=== PATIENT | male | born 1960 | race Caucasian/White ===

== ENCOUNTER 2017-03-17 12:30 | Inpatient (IN) | payer OTHER ==
[2017-03-17 14:09] VITALS: BMI 38.7
[2017-03-24] MEDS ORDERED: Tranexamic Acid 1,000 MG/100 ML BAG ONE ×2 (05:52→08:57)
[2017-03-24] MEDS ORDERED: Bupivacaine PF 0.5% 30 ML VIAL ONE (06:18)
[2017-03-24] MEDS ORDERED: Midazolam HCl 2 mg/2 ml Vial ONE (06:25)
[2017-03-24] MEDS ORDERED: Fentanyl 100 MCG/2 ML VIAL ONE ×4 (06:25→09:19)
[2017-03-24] MEDS ORDERED: Ropivacaine 0.2% HCl/PF 20 ML ONE (06:26)
[2017-03-24] MEDS ORDERED: CEFAZOLIN/Water 2 GM/20 ML SYRINGE ONE (06:51)
[2017-03-24] MEDS ORDERED: Promethazine HCl 25 MG/ML VIAL IM PRN ×2 (06:59→07:55)
[2017-03-24] MEDS ORDERED: HYDROcodone/Acetaminophen 10/325 mg Tablet PO PRN ×3 (06:59→07:55)
[2017-03-24] MEDS ORDERED: Ondansetron HCl/PF 4 MG/2 ML Vial IVP PRN ×2 (06:59→07:55)
[2017-03-24] MEDS ORDERED: diphenhydrAMINE 25 MG CAP PO PRN (06:59)
[2017-03-24] MEDS ORDERED: Zolpidem Tartrate 5 MG TAB PO PRN ×2 (06:59→07:55)
[2017-03-24] MEDS ORDERED: Acetaminophen 325 MG TAB PO PRN (06:59)
[2017-03-24] MEDS ORDERED: traMADol HCl 50 MG TAB PO PRN ×2 (06:59→07:55)
[2017-03-24] MEDS ORDERED: Fentanyl 100 MCG/2 ML VIAL SLOW IVP PRN ×2 (06:59)
[2017-03-24] MEDS ORDERED: Tranexamic Acid 1,000 MG in Sodium Chloride 0.9% 100 ML IVPB SCH (07:00)
[2017-03-24] MEDS ORDERED: Dextrose 5% in Water 1,000 ML IV PRN (07:02)
[2017-03-24] MEDS ORDERED: Dextrose 50% Abboject 50 ML SYRINGE SLOW IVP PRN (07:02)
[2017-03-24] MEDS ORDERED: Ondansetron HCl/PF 4 MG/2 ML Vial ONE (07:12)
[2017-03-24] MEDS ORDERED: ePHEDrine/0.9% NaCl/PF SYRINGE 50 mg/10 ml ONE (07:12)
[2017-03-24] MEDS ORDERED: Propofol 200 MG/20 ML VIAL ONE (07:12)
[2017-03-24] MEDS ORDERED: Ropivacaine HCl/PF 250 ML in Premix Bag 1 BAG NERVE BLCK SCH (07:55)
[2017-03-24] MEDS ORDERED: Losartan Potassium 25 MG TAB PO SCH (09:00)
--- NOTE | 2017-03-24 09:26 | RAD ---
TWO VIEWS LEFT KNEE: History: Left knee arthroplasty. Comparison: None. FINDINGS: Post-operative changes. Left knee arthroplasty identified. No fracture or dislocation. IMPRESSION: Unremarkable two views left knee. POS: [facility]
[2017-03-24] MEDS ORDERED: Insulin Regular 300 UNITS/3 ML VIAL SC PRN ×2 (10:49)
--- NOTE | 2017-03-24 10:59 | OP ---
DATE OF PROCEDURE: 03/24/2017 PREOPERATIVE DIAGNOSIS: End-stage tricompartmental osteoarthritis, left knee. POSTOPERATIVE DIAGNOSIS: End-stage tricompartmental osteoarthritis, left knee. OPERATIVE PROCEDURE: Cemented cruciate-sparing computer-assisted navigated left total knee arthropl raúl. SURGEON: Rupert Mercer M.D. ELECTRICIAN ELEVATOR MAINTENANCE: Jean-Claude Sánchez PA-C. ANESTHESIA: General via LMA augmented with indwelling adductor canal block and single shot sciatic block. COMPONENTS USED: [employer] Triathlon cemented cruciate-sparing primary femoral component size 6 with a cemented cruciate-sparing primary Triathlon tibial size 5 tibial baseplate, and a 9 mm polyethylene fixed bearing insert, and A38 patellar button. TOURNIQUET TIME: 67 minutes at 300 mmHg. ESTIMATED BLOOD LOSS: Less than 100. 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 DRAINS: None. SPECIMENS: None. COMPLICATIONS: None. COUNTS: Correct. INDICATIONS FOR SURGERY: Larry is a 56-year-old white male who has had progressive left knee pain, a mplified with standing and walking for the last 5-7 years. He has failed conservative management an d elected to proceed with total knee arthroplasty as definitive treatment of pain. PROCEDURE IN DETAIL: After informed consent was obtained in the preoperative holding area. The pat ient was taken to the operative suite where general anesthesia was induced. Once adequate level of general anesthesia was obtained, the patient was positioned and a well-padded tourniquet was placed around the left proximal thigh. The left lower extremity was then prepped and draped in the usual s terile fashion. Prior to exsanguination, a time out was called and all members of the surgical team agreed upon site, surgeon, and patient. The extremity was then exsanguinated and the tourniquet wa s raised. A midline longitudinal incision was then made directly over the patella extending two fin gerbreadths above the superior pole of the patella and two fingerbreadths inferior to the inferior p atellar pole of the patella. Deeper subcutaneous layers were dissected sharply and local bleeding w as controlled with Bovie electrocautery. A quad tendon longitudinal split was then made sharply and a median parapatellar arthrotomy was carried out both sharp and with Bovie electrocautery, carried down to one fingerbreadth medial to the tibial tubercle. The knee was then placed into flexion and the patella was everted nicely, and a copious fat pad ectomy was performed allowing for greater expo sure of the tibia. The computer-assisted distal femoral fiducial was then placed and pinned firmly, and the distal femoral cutting guide was pinned firmly into place. The oscillating saw was then us ed to remove the appropriate amount of bone. The 4-in-1 cutting block was then placed on the distal femur and the oscillating saw was used to remove the appropriate amount of bone off of the anterior , posterior, and chamfer cuts. After completion of bone cuts, the anterior cruciate ligament was re sected sharply and the posterior cruciate ligament retractor was placed and the tibia was subluxed f or better exposure. Partial meniscectomies were carried out, and the tibial computer-assisted fiduc ial was pinned, and the cutting guide was placed. Oscillating saw was then used to remove the bone with Hohmann retractors used to take care and protect the collateral ligaments. After the tibial re section was performed, a laminar power lineman technician was placed in between the freshened bone cuts. The knee p laced at 90 degrees and further bilateral meniscectomies were carried out, and the curved osteotome and curettage was used to remove any excess bone spurs in the posterior compartment. The trial femo ral component, tibial baseplate were placed with the appropriate polyethylene trial insert with an a ppropriate polyethylene spacer and patellar button. The knee was taken through full range of motion with flexion and extension from 0-90 degrees and patellar broach squarely in the trochlea without any squinting or subluxation noted. The knee was also stable to varus and valgus stressing at 0, 15 , 45, and 90 degrees of flexion. The drawer was negative. All trial components were then removed an d the keel punch was used to provide the appropriate defect in the tibia with a mallet. The freshen ed bone cuts were copiously irrigated with pulsatile lavage of about 1-1/2 liters to remove all exce ss debris. The freshened bone cuts were then dried and with suction and lap sponge. The knee was p laced in flexion and retractors were placed to provide access to all bone cuts. Tobramycin impregna raghav methyl methacrylate cement was then placed on the freshened bone cuts and implants which were ma lleted firmly into place. Curettage and Cucumber elevators were used to remove any excess bone cement. The knee was placed into full extension and the patellar button was placed under compression, and the cement was allowed to cure. Once completed, the components were again taken through full range of motion and copious irrigation of the knee was carried out with another liter of normal saline. A ll components were inspected fully with full range of motion and varus and valgus stressing. There was no laxity noted and full extension was observed clinically. Primary closure was accomplished wi th #2 interrupted Vicryl stitch of the arthrotomy defect. This was oversewn with a #2 running Quill barbed stitch. The subcutaneous layer was then closed with a running 0 barbed Monocryl stitch and skin closure accomplished with a running subcuticular 3-0 Monocryl barbed Quill stitch and augmented with cement on the skin. Tourniquet was lowered. Good spontaneous return of distal pulses was not ed clinically and a sterile dressing was applied to the incision. The procedure was terminated with out any complications. The patient was awakened in the operative suite and taken to the recovery ro om in stable condition.
[2017-03-24] MEDS ORDERED: Doxycycline 100 MG CAP PO SCH ×2 (11:00→21:00)
[2017-03-24] MEDS: Sodium Chloride 0.9% 1,000 ML IV SCH ×2 (11:00→19:01)
[2017-03-24] MEDS: CEFAZOLIN/Water 2 GM/20 ML SYRINGE SLOW IVP SCH ×2 (11:00→15:08)
[2017-03-24] MEDS: Aspirin 325 MG TAB PO SCH ×2 (11:01→20:52)
[2017-03-24] MEDS: metFORMIN XR 500 MG TAB PO SCH ×2 (11:01→18:10)
[2017-03-24] MEDS: Ketorolac Tromethamine 30 MG/ML VIAL IVP SCH ×2 (11:10→18:12)
[2017-03-24] MEDS: Carvedilol 3.125 MG TAB PO SCH ×2 (11:23→20:50)
[2017-03-24] MEDS: HYDROcodone/Acetaminophen 10/325 mg Tablet PO PRN ×2 (13:41→20:48)
[2017-03-24] MEDS ORDERED: Ropivacaine 0.5% HCl/PF (150 MG/30 ML VIAL) ONE (14:46)
[2017-03-24] MEDS ORDERED: Polyethylene Glycol 3350 17 GM Packet PO PRN (16:11)
[2017-03-24] MEDS ORDERED: hydrALAZINE 20 MG/ML VIAL SLOW IVP PRN (16:12)
[2017-03-24] MEDS ORDERED: Mag-Al 1200 mg/1200 mg/30 ML UDCUP PO PRN (16:12)
[2017-03-24] MEDS ORDERED: Labetalol HCl 100 MG/20 ML VIAL SLOW IVP PRN (16:12)
[2017-03-24] MEDS ORDERED: Calcium Carbonate 500 MG ChewTAB PO PRN (16:12)
--- NOTE | 2017-03-24 16:14 | PDOC.PN ---
- Subjective Encounter Start Date: 03/24/17 Encounter Start Time: 16:00 Patient seen and examined. Chart reviewed. Consult for medical mngt. Pain controlled. Denies any CP/SOB. - Objective MAR Reviewed: Yes Vital Signs & Weight: Vital Signs (12 hours) Temp Pulse Resp BP Pulse Ox 03/24/17 10:53 98.4 F 75 18 03/24/17 10:52 75 18 151/83 H 95 Weight Weight 270 lb Additional Labs: Laboratory Tests 03/17/17 13:45 Creatinine 0.72 EKG Reviewed by me: Yes (SR) Phys Exam - Physical Examination Constitutional: NAD Respiratory: no wheezing, no rhonchi Cardiovascular: RRR, no rub Gastrointestinal: soft, non-tender, positive bowel sounds Musculoskeletal: no edema Neurological: non-focal, moves all 4 limbs Psychiatric: A&O x 3 Dx/Plan (1) HTN (hypertension) Code(s): I10 - ESSENTIAL (PRIMARY) HYPERTENSION Status: Chronic Comment: on Coreg and Losartan (2) DM2 (diabetes mellitus, type 2) Status: Chronic Qualifiers: Chronic kidney disease stage: stage 2 (mild) Comment: on Metformin and Invokana (3) HLD (hyperlipidemia) Code(s): E78.5 - HYPERLIPIDEMIA, UNSPECIFIED Status: Acute Comment: on Lipitor (4) Obesity (BMI 30-39.9) Code(s): E66.9 - OBESITY, UNSPECIFIED Status: Chronic - Plan DVT proph w/SCDs * Cont current home meds as below * Add holding parameters * Add low dose sliding scale * Cont to monitor * Advised patient to use IS. * Will follow. Thank you for this consultation. Review of Systems - Review of Systems Respiratory: negative: Cough, Dry, Shortness of Breath, Hemoptysis, SOB with Excertion, Pleuritic Pain, Sputum, Wheezing Cardiovascular: negative: Chest Pain, Palpitations, Orthopnea, Paroxysmal Noc. Dyspnea, Edema, Light Headedness, Other Gastrointestinal: negative: Nausea, Vomiting, Abdominal Pain, Diarrhea, Constipation, Melena, Hematochezia, Other - Medications/Allergies Allergies/Adverse Reactions: Allergies Allergy/AdvReac Type Severity Reaction Status Date / Time Penicillins Allergy Verified 03/17/17 14:09 Medications: Current Medications Acetaminophen (Tylenol) 650 mg PO Q4H PRN PRN Reason: YOUNGBLOOD/ T > 101F; Mild Pain (1-3) Hydrocodone Bitart/Acetaminophen ([place] 10/325) 1 tab PO Q4H PRN PRN Reason: Pain (1-3) Hydrocodone Bitart/Acetaminophen ([place] 10/325) 2 tab PO Q4H PRN PRN Reason: PAIN (4-6) Last Admin: 03/24/17 13:41 Dose: 2 tab Al Hydroxide/Mg Hydroxide (Maalox) 30 ml PO Q6H PRN PRN Reason: Heartburn or Indigestion Aspirin (Aspirin) 325 mg PO BID [facility] Last Admin: 03/24/17 11:01 Dose: Not Given Atorvastatin Calcium (Lipitor) 20 mg PO HS [facility] Calcium Carbonate (Tums) 1,000 mg PO Q4H PRN PRN Reason: Heartburn or Indigestion Carvedilol (Coreg) 3.125 mg PO BID [facility] Last Admin: 03/24/17 11:23 Dose: Not Given Dextrose/Water (Dextrose 50%) 25 gm SLOW IVP PRN PRN PRN Reason: Hypoglycemia Diphenhydramine HCl (Benadryl) 25 mg PO Q6H PRN PRN Reason: Itching Fentanyl (Sublimaze) 50 mcg IV Q1H PRN PRN Reason: BREAKTHROUGH PAIN Ferrous Gluconate (Fergon) 324 mg PO BID[facility] Glucagon (Glucagon) 1 mg IM PRN PRN PRN Reason: Hypoglycemia Hydralazine HCl (Apresoline) 10 mg SLOW IVP Q4H PRN PRN Reason: SBP Greater Than 180 Dextrose/Water (D5w) 1,000 mls @ 0 mls/hr IV .Q0M PRN; As Directed PRN Reason: Hypoglycemia Sodium Chloride (Normal Saline 0.9%) 1,000 mls @ 100 mls/hr IV .Q10H [facility] Last Admin: 03/24/17 11:00 Dose: Not Given Ropivacaine 250 ml/ Device 250 mls @ 0 mls/hr NERVE BLCK INF [facility] PRN Reason: As Directed Insulin Human Regular (Humulin R) 0 units SC .MILD SLIDING SCALE PRN PRN Reason: Mild Correctional Scale Insulin Human Regular (Humulin R) 0 units SC .BEDTIME SLIDING SC PRN PRN Reason: Bedtime Correctional Scale Iron/Minerals/Multivitamins (Theragran M) 1 tab PO DAILY [facility] Ketorolac Tromethamine (Toradol) 15 mg IVP Q6HR [facility] Stop: 03/26/17 06:01 Last Admin: 03/24/17 11:10 Dose: 15 mg Labetalol HCl (Normodyne) 10 mg SLOW IVP Q4H PRN PRN Reason: Systolic BP > 180 Losartan Potassium (Cozaar) 50 mg PO QAM [facility] Last Admin: 03/24/17 09:00 Dose: Not Given Metformin HCl (Glucophage Xr) 1,000 mg PO BID-WM [facility] Last Admin: 03/24/17 11:01 Dose: Not Given Ondansetron HCl (Zofran) 4 mg IVP Q6H PRN PRN Reason: Nausea/Vomiting Canagliflozin [ (Invokana] 300 Mg Tab) 0 each PO 0600 [facility] Doxycycline Hyclate (100 Mg Tab) 0 each PO HS [facility] Stop: 03/28/17 21:01 Polyethylene Glycol (Miralax) 17 gm PO DAILY PRN PRN Reason: Constipation Promethazine HCl (Phenergan) 12.5 mg IM Q4H PRN PRN Reason: Nausea Senna/Docusate Sodium (Senokot S) 2 tab PO BID [facility] Sodium Chloride (Flush - Normal Saline) 10 ml IVF PRN PRN PRN Reason: Saline Flush Tramadol HCl (Ultram) 50 mg PO Q6H PRN PRN Reason: Mild Pain (1-3) Tramadol HCl (Ultram) 100 mg PO Q6H PRN PRN Reason: Moderate Pain 4-6 Zolpidem Tartrate (Ambien) 5 mg PO HSPRN PRN PRN Reason: Insomnia
[2017-03-24] MEDS ORDERED: FLU VACC TS2017-18 (>65YR) 0.5 ML SYRINGE IM ONE (18:45)
[2017-03-24] MEDS: Atorvastatin Calcium 20 MG TAB PO SCH (20:51)
[2017-03-24] MEDS: DOXYCYCLINE HYCLATE 100 MG TAB PO SCH (21:01)
[2017-03-25] MEDS: Ketorolac Tromethamine 30 MG/ML VIAL IVP SCH ×4 (00:19→17:15)
[2017-03-25] MEDS: Sodium Chloride 0.9% 1,000 ML IV SCH ×2 (01:05→15:13)
[2017-03-25] MEDS: HYDROcodone/Acetaminophen 10/325 mg Tablet PO PRN ×5 (04:30→21:21)
[2017-03-25 05:22] LABS: Hematocrit 37.9 % (42.0-52.0); Mean Platelet Volume 7.7 fL (7.4-10.4); Red Blood Cell (RBC) Count 3.61 mill/uL (4.70-6.10); White Blood Cell (WBC) Count 9.3 thou/uL (4.8-10.8)
[2017-03-25] MEDS: CANAGLIFLOZIN 300 MG PO SCH (07:06)
--- NOTE | 2017-03-25 07:21 | PDOC.PN ---
- Subjective Encounter Start Date: 03/25/17 Encounter Start Time: 07:21 Patient seen and examined. No new complaints. No overnight events. Sitting on chair. Pain controlled. No N/V/CP. - Objective MAR Reviewed: Yes Vital Signs & Weight: Vital Signs (12 hours) Temp Pulse Resp BP Pulse Ox 03/25/17 04:22 98.4 F 81 16 137/75 94 L 03/25/17 00:20 99 F 90 14 107/62 92 L 03/24/17 20:05 98.4 F 65 15 112/68 94 L Weight Weight 270 lb I&O: 03/24/17 03/25/17 03/26/17 06:59 06:59 06:59 Intake Total 1480 Output Total 2150 Balance -670 Result Diagrams: 03/25/17 04:20 Phys Exam - Physical Examination Constitutional: NAD Respiratory: no wheezing, no rhonchi Cardiovascular: RRR, no rub Gastrointestinal: soft, non-tender, positive bowel sounds Musculoskeletal: no edema Neurological: moves all 4 limbs Dx/Plan (1) HTN (hypertension) Code(s): I10 - ESSENTIAL (PRIMARY) HYPERTENSION Status: Chronic Comment: on Coreg and Losartan (2) DM2 (diabetes mellitus, type 2) Status: Chronic Qualifiers: Chronic kidney disease stage: stage 2 (mild) Comment: on Metformin and Invokana (3) HLD (hyperlipidemia) Code(s): E78.5 - HYPERLIPIDEMIA, UNSPECIFIED Status: Chronic Comment: on Lipitor (4) Obesity (BMI 30-39.9) Code(s): E66.9 - OBESITY, UNSPECIFIED Status: Chronic - Plan cont current plan of care, DVT proph w/SCDs * Will cont current meds for HTN and DM2 * Sugars ok * Will cont to follow * Cont current meds as below. Review of Systems - Review of Systems Respiratory: negative: Cough, Dry, Shortness of Breath, Hemoptysis, SOB with Excertion, Pleuritic Pain, Sputum, Wheezing Cardiovascular: negative: Chest Pain, Palpitations, Orthopnea, Paroxysmal Noc. Dyspnea, Edema, Light Headedness, Other Gastrointestinal: negative: Nausea, Vomiting, Abdominal Pain, Diarrhea, Constipation, Melena, Hematochezia, Other - Medications/Allergies Allergies/Adverse Reactions: Allergies Allergy/AdvReac Type Severity Reaction Status Date / Time Penicillins Allergy Verified 03/17/17 14:09 Medications: Current Medications Acetaminophen (Tylenol) 650 mg PO Q4H PRN PRN Reason: YOUNGBLOOD/ T > 101F; Mild Pain (1-3) Hydrocodone Bitart/Acetaminophen ([place] 10/325) 1 tab PO Q4H PRN PRN Reason: Pain (1-3) Hydrocodone Bitart/Acetaminophen ([place] 10/325) 2 tab PO Q4H PRN PRN Reason: PAIN (4-6) Last Admin: 03/25/17 04:30 Dose: 2 tab Al Hydroxide/Mg Hydroxide (Maalox) 30 ml PO Q6H PRN PRN Reason: Heartburn or Indigestion Aspirin (Aspirin) 325 mg PO BID [facility] Last Admin: 03/24/17 20:52 Dose: 325 mg Atorvastatin Calcium (Lipitor) 20 mg PO [facility] Last Admin: 03/24/17 20:51 Dose: 20 mg Calcium Carbonate (Tums) 1,000 mg PO Q4H PRN PRN Reason: Heartburn or Indigestion Carvedilol (Coreg) 3.125 mg PO BID [facility] Last Admin: 03/24/17 20:50 Dose: 3.125 mg Dextrose/Water (Dextrose 50%) 25 gm SLOW IVP PRN PRN PRN Reason: Hypoglycemia Diphenhydramine HCl (Benadryl) 25 mg PO Q6H PRN PRN Reason: Itching Fentanyl (Sublimaze) 50 mcg IV Q1H PRN PRN Reason: BREAKTHROUGH PAIN Ferrous Gluconate (Fergon) 324 mg PO BID[facility] Glucagon (Glucagon) 1 mg IM PRN PRN PRN Reason: Hypoglycemia Hydralazine HCl (Apresoline) 10 mg SLOW IVP Q4H PRN PRN Reason: SBP Greater Than 180 Dextrose/Water (D5w) 1,000 mls @ 0 mls/hr IV .Q0M PRN; As Directed PRN Reason: Hypoglycemia Sodium Chloride (Normal Saline 0.9%) 1,000 mls @ 100 mls/hr IV .Q10H [facility] Last Admin: 03/25/17 01:05 Dose: 1,000 mls Ropivacaine 250 ml/ Device 250 mls @ 0 mls/hr NERVE BLCK INF [facility] PRN Reason: As Directed Insulin Human Regular (Humulin R) 0 units SC .MILD SLIDING SCALE PRN PRN Reason: Mild Correctional Scale Insulin Human Regular (Humulin R) 0 units SC .BEDTIME SLIDING SC PRN PRN Reason: Bedtime Correctional Scale Iron/Minerals/Multivitamins (Theragran M) 1 tab PO DAILY [facility] Ketorolac Tromethamine (Toradol) 15 mg IVP Q6HR [facility] Stop: 03/26/17 06:01 Last Admin: 03/25/17 06:31 Dose: 15 mg Labetalol HCl (Normodyne) 10 mg SLOW IVP Q4H PRN PRN Reason: Systolic BP > 180 Losartan Potassium (Cozaar) 50 mg PO QAM [facility] Metformin HCl (Glucophage Xr) 1,000 mg PO BID[facility] Last Admin: 03/24/17 18:10 Dose: 1,000 mg Ondansetron HCl (Zofran) 4 mg IVP Q6H PRN PRN Reason: Nausea/Vomiting Canagliflozin [ (Invokana] 300 Mg Tab) 0 each PO 0600 [facility] Last Admin: 03/25/17 07:06 Dose: 1 each Doxycycline Hyclate (100 Mg Tab) 0 each PO HS [facility] Stop: 03/28/17 21:01 Last Admin: 03/24/17 21:01 Dose: 1 each Polyethylene Glycol (Miralax) 17 gm PO DAILY PRN PRN Reason: Constipation Promethazine HCl (Phenergan) 12.5 mg IM Q4H PRN PRN Reason: Nausea Senna/Docusate Sodium (Senokot S) 2 tab PO BID [facility] Sodium Chloride (Flush - Normal Saline) 10 ml IVF PRN PRN PRN Reason: Saline Flush Tramadol HCl (Ultram) 50 mg PO Q6H PRN PRN Reason: Mild Pain (1-3) Tramadol HCl (Ultram) 100 mg PO Q6H PRN PRN Reason: Moderate Pain 4-6 Zolpidem Tartrate (Ambien) 5 mg PO HSPRN PRN PRN Reason: Insomnia
[2017-03-25] MEDS ORDERED: Polyethylene Glycol 3350 17 GM Packet PO PRN (07:22)
[2017-03-25] MEDS: Multivitamin W/ Minerals 1 TAB PO SCH (08:25)
[2017-03-25] MEDS: Ferrous Gluconate 324 MG TAB PO SCH ×2 (08:25→17:02)
[2017-03-25] MEDS: Losartan Potassium 25 MG TAB PO SCH (08:26)
[2017-03-25] MEDS: Carvedilol 3.125 MG TAB PO SCH ×2 (08:27→21:20)
[2017-03-25] MEDS: Docusate 100 MG CAP PO SCH ×2 (08:27→21:21)
[2017-03-25] MEDS: Aspirin 325 MG TAB PO SCH ×2 (08:27→21:20)
[2017-03-25] MEDS: metFORMIN XR 500 MG TAB PO SCH ×2 (08:27→17:03)
[2017-03-25] MEDS: Senokot S 8.6-50 MG TAB PO SCH ×2 (08:27→21:20)
[2017-03-25] MEDS ORDERED: Potassium Chloride 20 MEQ TAB ONE (11:21)
[2017-03-25] MEDS: Fentanyl 100 MCG/2 ML VIAL IV PRN ×2 (11:50→22:10)
[2017-03-25] MEDS: DOXYCYCLINE HYCLATE 100 MG TAB PO SCH (21:19)
[2017-03-25] MEDS: Atorvastatin Calcium 20 MG TAB PO SCH (21:21)
[2017-03-26] MEDS: Sodium Chloride 0.9% 1,000 ML IV SCH ×2 (00:06→11:33)
[2017-03-26] MEDS: Ketorolac Tromethamine 30 MG/ML VIAL IVP SCH ×2 (00:33→05:30)
[2017-03-26] MEDS: HYDROcodone/Acetaminophen 10/325 mg Tablet PO PRN ×4 (00:33→12:26)
[2017-03-26 05:21] LABS: Hematocrit 37.9 % (42.0-52.0); Mean Platelet Volume 8.4 fL (7.4-10.4); Red Blood Cell (RBC) Count 3.62 mill/uL (4.70-6.10)
[2017-03-26] MEDS: CANAGLIFLOZIN 300 MG PO SCH (05:31)
--- NOTE | 2017-03-26 07:43 | DIS ---
DATE OF DISCHARGE: 03/26/2017 PREOPERATIVE DIAGNOSIS: Left knee degenerative joint disease/osteoarthritis. DISCHARGE DIAGNOSIS: Left knee degenerative joint disease/osteoarthritis. PROCEDURE: The patient underwent a left total knee replacement. HOSPITAL COURSE: Hospital stay was unremarkable. He is admitted to [address] where nadeem mace worked with staff, physical therapy, occupational therapy, and progressed quite well. By postopera tive day 2, he was ready to discharge home. DISCHARGE CONDITION: Stable. FOLLOWUP: Follow up would be in 3-4 weeks, sooner if there are problems or concerns. DISCHARGE MEDICATIONS: Given with usage instructions.
[2017-03-26] MEDS: metFORMIN XR 500 MG TAB PO SCH (08:01)
[2017-03-26] MEDS: Carvedilol 3.125 MG TAB PO SCH (08:02)
[2017-03-26] MEDS: Multivitamin W/ Minerals 1 TAB PO SCH (08:02)
[2017-03-26] MEDS: Aspirin 325 MG TAB PO SCH (08:02)
[2017-03-26] MEDS: Ferrous Gluconate 324 MG TAB PO SCH (08:02)
[2017-03-26] MEDS: Docusate 100 MG CAP PO SCH (08:02)
[2017-03-26] MEDS: Senokot S 8.6-50 MG TAB PO SCH (08:02)
[2017-03-26] MEDS: Losartan Potassium 25 MG TAB PO SCH (08:03)
[2017-03-26] MEDS: traMADol HCl 50 MG TAB PO PRN ×2 (10:02→15:08)
[2017-03-26 11:42] VITALS: BP 142/91; TEMP 98.3
[2017-03-26] MEDS ORDERED: FLU VACC QS2017-18 36 mo. & older 0.5 ML SYRINGE IM ONE (15:00)
== END 2017-03-26 15:00 | disposition home or self-care (01) | DRG 470 ==
LOC: SJJU 03-24 05:28 → EDSTATUS 03-24 12:30
PROVIDERS: ADMIT Orthopaedic Surgery; ATTEND Orthopaedic Surgery
PROC: 0SRD0J9 Replacement of Left Knee Joint with Synthetic Substitute, Cemented, Open Approach (ICD-10-PCS; principal; 2017-03-24)
PROC: 3E0T3BZ Introduction of Anesthetic Agent into Peripheral Nerves and Plexi, Percutaneous Approach (ICD-10-PCS; 2017-03-24)
DX: M17.12 Unilateral primary osteoarthritis, left knee (principal); E11.22 Type 2 diabetes mellitus with diabetic chronic kidney disease; Z79.84 Long term (current) use of oral hypoglycemic drugs; E78.5 Hyperlipidemia, unspecified; E66.9 Obesity, unspecified; Z68.38 Body mass index [BMI] 38.0-38.9, adult; I12.9 Hypertensive chronic kidney disease with stage 1 through stage 4 chronic kidney disease, or unspecified chronic kidney disease; N18.2 Chronic kidney disease, stage 2 (mild)
CPT/HCPCS: 36415; 85027; 90471; 90682; C1713; C1776; G0008; G8978-GP-CK; G8979-GP-CJ; J1885; J2250; J2405; J2704; J2795; J3010; J3370; J7050; Q2036; S0020

== ENCOUNTER 2017-06-16 08:42 | Day surgery (SDC) | payer OTHER ==
[2017-06-15 15:52] VITALS: BMI 38.7
[2017-06-16] MEDS ORDERED: Midazolam HCl 2 mg/2 ml Vial ONE (10:18)
[2017-06-16] MEDS ORDERED: Lidocaine 1% (PF) 30 ML VIAL ONE (10:18)
[2017-06-16] MEDS ORDERED: Fentanyl 100 MCG/2 ML VIAL ONE ×2 (10:18→12:05)
[2017-06-16] MEDS ORDERED: Ketorolac Tromethamine 30 MG/ML VIAL ONE (12:05)
[2017-06-16] MEDS ORDERED: HYDROmorphone 0.5 MG/0.5 ML SYRINGE ONE (12:19)
--- NOTE | 2017-06-16 12:26 | OP ---
DATE OF PROCEDURE: 06/16/2017 PREOPERATIVE DIAGNOSIS: Arthrofibrosis of the left knee after total knee arthroplasty. POSTOPERATIVE DIAGNOSIS: Arthrofibrosis of the left knee after total knee arthroplasty. PROCEDURE: Manipulation under anesthesia. SURGEON: Rupert Mercer M.D. ANESTHESIA: General. NARRATIVE REPORT: The patient was taken to the operating where general anesthesia induced. He had f ull relaxation. I manipulated his knee. I was able to achieve full extension, 100 degrees of flexio n. The patient then emerged from anesthesia.
[2017-06-16] MEDS ORDERED: Bupivacaine HCl 0.5%/Epinephrine 1:200,000/PF 30 ml Vial ONE (15:53)
[2017-06-16] MEDS ORDERED: Lidocaine 1% PF 5 ML VIAL ONE (16:20)
[2017-06-16] MEDS ORDERED: Ondansetron HCl/PF 4 MG/2 ML Vial ONE (16:20)
[2017-06-16] MEDS ORDERED: Propofol 200 MG/20 ML VIAL ONE (16:20)
== END 2017-06-16 13:15 | disposition home or self-care (01) ==
LOC: SDC 08:42
PROVIDERS: ATTEND Orthopaedic Surgery
PROC: 0SSDXZZ Reposition Left Knee Joint, External Approach (ICD-10-PCS; principal; 2017-06-16)
DX: M24.662 Ankylosis, left knee (principal); I10 Essential (primary) hypertension; E11.9 Type 2 diabetes mellitus without complications; Z88.0 Allergy status to penicillin; Z98.890 Other specified postprocedural states; Z96.652 Presence of left artificial knee joint
CPT/HCPCS: 96374; J0670; J1170; J1885; J2001; J2250; J2405; J2704; J3010

== ENCOUNTER 2019-09-19 06:22 | Outpatient (CLI) | payer OTHER ==
[2019-09-19 13:08] LABS: #Eosinphils 0.1 thou/uL (0.0-0.7); #Lymphocytes 1.6 thou/uL (1.20-3.40); #Monocytes 0.7 thou/uL (0.11-0.59); #Neutrophils 3.3 thou/uL (1.40-6.50); %Basophils 0.8 % (0.0-1.0); %Eosinophils 2.3 % (0.0-10.0); %Lymphocytes 27.5 % (21.0-51.0); %Monocytes 12.8 % (0.0-10.0); %Neutrophils 56.7 % (42.0-75.0); Hemoglobin 14.9 g/dL (14.0-18.0); Mean Corpuscular HGB CONC 33.3 g/dL (32.0-36.0); Mean Corpuscular Hemoglobin 34.3 pg (27.0-31.0); Mean Platelet Volume 7.7 fL (7.4-10.4); Platelet Count 198 thou/uL (130-400); RBC Distribution Width 11.9 % (11.5-14.5); Red Blood Cell (RBC) Count 4.35 mill/uL (4.70-6.10); White Blood Cell (WBC) Count 5.8 thou/uL (4.8-10.8)
[2019-09-19 13:27] LABS: Anion Gap 14 mmol/L (10-20); BUN (Urea Nitrogen) 10 mg/dL (8.4-25.7); Calc. Creatinine Clearance 0 mL/min (70-130); Calcium 9.6 mg/dL (7.8-10.44); Carbon Dioxide 25 mmol/L (22-29); Chloride 103 mmol/L (98-107); Estimated GFR-MDRD Greater than 90; Glucose 127 mg/dL (70-105); Potassium 4.3 mmol/L (3.5-5.1); Sodium 138 mmol/L (136-145)
--- NOTE | 2019-09-19 16:14 | EKG ---
Test Reason : Blood Pressure : / mmHG Vent. Rate : 074 BPM Atrial Rate : 074 BPM P-R Int : 156 ms QRS Dur : 090 ms QT Int : 378 ms P-R-T Axes : 056 030 044 degrees QTc Int : 419 ms Normal sinus rhythm Low voltage QRS Poor anterior R wave progression Abnormal ECG When compared with ECG of 17-MAR-2017 13:32, No significant change was found Confirmed by TE CADENA, . SJudith (4) on 09/19/2019 4:14:02 PM Referred By: EMANI Confirmed By:DR. Nickolas TIWARI MD
[2019-09-20 11:29] LABS: SARS-CoV-2 MS2 Positive; SARS-CoV-2 N Gene Negative; SARS-CoV-2 S Gene Negative; SARS-CoV-2 orf1ab Negative
== END 2019-09-19 06:23 | disposition home or self-care (01) ==
LOC: LABBT 06:22
PROVIDERS: ATTEND Orthopaedic Surgery
DX: Z01.818 Encounter for other preprocedural examination (principal); Z11.59 Encounter for screening for other viral diseases; S83.241A Other tear of medial meniscus, current injury, right knee, initial encounter
CPT/HCPCS: 80048; 85025; 87635; 93005; 93010; U0003

== ENCOUNTER 2019-09-22 07:21 | Day surgery (SDC) | payer OTHER ==
[2019-09-19 11:15] VITALS: BMI 44.3
[2019-09-22] MEDS ORDERED: Fentanyl 100 MCG/2 ML VIAL ONE ×2 (08:08→10:17)
[2019-09-22] MEDS ORDERED: Midazolam HCl 2 mg/2 ml Vial ONE (08:08)
[2019-09-22] MEDS ORDERED: HYDROcodone/Acetaminophen 5/325 mg Tablet ONE (11:40)
[2019-09-22] MEDS ORDERED: PROPOFOL 200 MG/20 ML VIAL ONE (13:05)
[2019-09-22] MEDS ORDERED: Ondansetron PF 4 MG/2 ML Vial ONE (13:05)
[2019-09-22] MEDS ORDERED: Bupivacaine HCl 0.5%/Epinephrine 1:200,000/PF 30 ml Vial ONE (13:05)
[2019-09-22] MEDS ORDERED: Lidocaine 2% w/Epinephrine 1:200K 20 ML VIAL ONE (13:05)
--- NOTE | 2019-09-22 19:14 | OP ---
DATE OF PROCEDURE: 09/22/2019 PREOPERATIVE DIAGNOSIS: Medial meniscus tear, right knee. POSTOPERATIVE DIAGNOSIS: Medial meniscus tear, right knee. PROCEDURE PERFORMED: Arthroscopic partial medial meniscectomy. FINDINGS AT SURGERY: Grade 3 chondromalacia, lateral femoral condyle and medial femoral condyle, large tear of posterior horn of the medial meniscus, and grade 4 chondromalacia, patellofemoral joint. ANESTHESIA: General. BLOOD LOSS: Minimal. SPECIMENS: None. DRAINS: None. COMPLICATIONS: None. DESCRIPTION OF PROCEDURE: The patient was taken to the operating room, where general anesthesia induced. Right leg was prepped and draped in usual sterile fashion. The scope was placed in the lateral portal, probe was placed in the medial portal. Findings were as above. I removed most of the posterior horn of his medial meniscus. I debrided the unstable cartilaginous flap tears on the trochlea of the femur, medial and lateral femoral condyles lateral meniscus probed and found to be intact. The ACL was intact. I swept the gutters for loose bodies. There were none. The knee was irrigated and drained. Sterile dressings applied. Job ID: [id number]
== END 2019-09-22 14:45 | disposition home or self-care (01) ==
LOC: SDC 07:21
PROVIDERS: ATTEND Orthopaedic Surgery
PROC: 0SBC4ZZ Excision of Right Knee Joint, Percutaneous Endoscopic Approach (ICD-10-PCS; principal; 2019-09-22)
DX: S83.241A Other tear of medial meniscus, current injury, right knee, initial encounter (principal); M94.261 Chondromalacia, right knee; E11.9 Type 2 diabetes mellitus without complications; I10 Essential (primary) hypertension; Z79.82 Long term (current) use of aspirin; Z79.84 Long term (current) use of oral hypoglycemic drugs; Z79.899 Other long term (current) drug therapy
CPT/HCPCS: J0670; J0690; J2250; J2405; J2704; J3010